=== PATIENT | male | born 1955 | race Caucasian/White ===

== ENCOUNTER 2017-05-16 03:50 | Emergency (ER) | payer OTHER ==
[~2017-05-16] VITALS: Ht 182.9 cm; Wt 71.4 kg
[~2017-05-16 03:50] MED LIST: METO25TA35 PO; OMEP40CA6 PO; PRED20TA PO; TEMA15CA PO
[2017-05-16] MEDS ORDERED: SODIUM CHLORIDE 0.9% 1,000 ML IV ONE (04:53)
[2017-05-16] MEDS ORDERED: HYDROmorphone 1 MG/ML, 1ML ONE (04:58)
[2017-05-16] MEDS ORDERED: HYDROmorphone 1 MG/ML, 1ML IVPush PRN (05:00)
[2017-05-16] MEDS ORDERED: SODIUM CHLORIDE 0.9% 1,000ML IV ONE (05:00)
[2017-05-16] MEDS ORDERED: DIAZEPAM 5 MG/ML, 2ML IVPush ONE (05:00)
[2017-05-16 05:41] LABS: BLOOD UREA NITROGEN 16 mg/dL (7-18)
[2017-05-16 07:01] VITALS: BP 114/73
== END 2017-05-16 07:22 | disposition home or self-care (01) ==
LOC: ED 07:00
DX: M54.12 Radiculopathy, cervical region (principal); M25.511 Pain in right shoulder; M25.512 Pain in left shoulder; K21.9 Gastro-esophageal reflux disease without esophagitis; I10 Essential (primary) hypertension
CPT/HCPCS: 36415; 71010; 80048; 82040; 85025; 93005; 96361; 96374; 96375; 99285; J1170; J3360; J7030

== ENCOUNTER 2017-10-16 20:09 | Emergency (ER) | payer OTHER ==
[~2017-10-16] VITALS: Ht 182.9 cm; Wt 72.0 kg
[2017-10-16 20:44] LABS: HEMATOCRIT 48.9 % (39.2-51.8); HEMOGLOBIN 16.8 g/dL (13.7-18.0); WHITE BLOOD COUNT 6.9 x10^3/uL (3.4-10)
[2017-10-16 20:51] LABS: BLOOD UREA NITROGEN 16 mg/dL (7-18)
[2017-10-16] MEDS ORDERED: KETOROLAC 60 MG/2 ML IVPush ONE (22:30)
[2017-10-16] MEDS ORDERED: OXYcodone/APAP 10/325MG TABLET PO ONE (22:30)
[2017-10-16] MEDS ORDERED: OXYcodone/APAP 10/325MG TABLET ONE (22:30)
[2017-10-16] MEDS ORDERED: ONDANSETRON 2MG/ML, 2ML IVPush ONE (22:30)
[2017-10-16] MEDS ORDERED: morphine SULFATE 10 MG/ML, 1ML IVPush ONE (22:30)
[2017-10-16 22:50] VITALS: BP 110/76
== END 2017-10-16 22:53 | disposition home or self-care (01) ==
LOC: ED 22:45
DX: M79.605 Pain in left leg (principal); M79.604 Pain in right leg; M79.651 Pain in right thigh; M79.652 Pain in left thigh; R10.84 Generalized abdominal pain; K21.9 Gastro-esophageal reflux disease without esophagitis; I10 Essential (primary) hypertension; M54.12 Radiculopathy, cervical region; Z98.890 Other specified postprocedural states
CPT/HCPCS: 36415; 80048; 81003; 82040; 82550; 85025; 93970; 99285

== ENCOUNTER 2017-12-14 22:39 | Emergency (ER) | payer OTHER ==
[~2017-12-14] VITALS: Ht 167.6 cm; Wt 75.0 kg
[2017-12-14 23:27] LABS: BASOPHILS # (AUTO) 0.05 x10^3/uL (0-0.1); BASOPHILS % (AUTO) 1 % (0-1); EOSINOPHILS # (AUTO) 0.26 x10^3/uL (0-0.4); EOSINOPHILS % (AUTO) 4 % (1-7); LYMPHOCYTES # (AUTO) 1.37 x10^3/uL (1-3.4); LYMPHOCYTES % (AUTO) 20 % (22-44); MD NO; MEAN CORPUSCULAR HEMOGLOBIN 31.5 pg (27.5-34.5); MEAN CORPUSCULAR HGB CONC 34.3 g/dL (33.2-36.2); MEAN CORPUSCULAR VOLUME 91.9 fL (81-97); MEAN PLATELET VOLUME 8.1 fL (7.4-10.4); MONOCYTES # (AUTO) 0.77 x10^3/uL (0.2-0.8); MONOCYTES % (AUTO) 11 % (2-9); NEUTROPHILS # (AUTO) 4.43 x10^3/uL (1.8-6.8); NEUTROPHILS % (AUTO) 64 % (42-75); PLATELET COUNT 233 x10^3/uL (130-400); RED BLOOD COUNT 4.14 x10^6/uL (4.38-5.82); RED CELL DISTRIBUTION WIDTH 13.5 % (9.4-14.8)
[2017-12-14 23:39] LABS: ALBUMIN 2.8 g/dL (3.4-5.0); ANION GAP 6 mmol/L (5-15); CHLORIDE 104 mmol/L (98-107); CREATININE 0.82 mg/dL (0.7-1.3)
[2017-12-14 23:44] LABS: TROPONIN I < 0.015 ng/mL (0.000-0.045)
[2017-12-15] MEDS ORDERED: OMNIPAQUE 350 MG/ML, 100ML BOTTLE ONE (00:15)
[2017-12-15 00:20] VITALS: BP 123/63
[2017-12-15] MEDS ORDERED: ONDANSETRON 2MG/ML, 2ML IVPush ONE (00:30)
[2017-12-15] MEDS ORDERED: HYDROmorphone 1 MG/ML, 1ML IV ONE (00:30)
[2017-12-15] MEDS ORDERED: HYDROmorphone 2 MG/ML, 1ML ONE (00:40)
[2017-12-15] MEDS ORDERED: ONDANSETRON 2MG/ML, 2ML ONE (00:40)
== END 2017-12-15 01:43 | disposition home or self-care (01) ==
LOC: ED 23:25
DX: J18.9 Pneumonia, unspecified organism (principal); R05 Cough; K21.9 Gastro-esophageal reflux disease without esophagitis; I10 Essential (primary) hypertension
CPT/HCPCS: 36415; 71275; 80048; 82040; 84484; 85025; 93005; 96374; 96375; 99285; J1170; J2405; Q9967

== ENCOUNTER 2018-08-14 09:17 | Emergency (ER) | payer OTHER ==
[~2018-08-14] VITALS: Ht 182.9 cm; Wt 73.7 kg
[2018-08-14 09:44] VITALS: BP 121/69
== END 2018-08-14 12:39 | disposition home or self-care (01) ==
LOC: ED 11:12 → UNDOADMIN 11:13 → EDIP 11:13 → ED 11:21
DX: S92.355A Nondisplaced fracture of fifth metatarsal bone, left foot, initial encounter for closed fracture (principal); S49.92XA Unspecified injury of left shoulder and upper arm, initial encounter; K21.9 Gastro-esophageal reflux disease without esophagitis; I10 Essential (primary) hypertension; Z96.659 Presence of unspecified artificial knee joint; W01.0XXA Fall on same level from slipping, tripping and stumbling without subsequent striking against object, initial encounter; Y93.89 Activity, other specified; Y99.8 Other external cause status; Y92.009 Unspecified place in unspecified non-institutional (private) residence as the place of occurrence of the external cause
CPT/HCPCS: 29515; 99284

== ENCOUNTER 2018-11-01 00:05 | Emergency (ER) | payer OTHER ==
[~2018-11-01] VITALS: Ht 182.9 cm; Wt 75.4 kg
[2018-11-01] MEDS ORDERED: POTA5TAB2 PO (00:52)
[2018-11-01] MEDS ORDERED: vitamin b-12 INJ (00:52)
[2018-11-01] MEDS ORDERED: CELE200C PO (00:52)
[2018-11-01] MEDS ORDERED: hectorol PO (00:52)
[2018-11-01] MEDS ORDERED: CYCL-259 PO (00:52)
[2018-11-01 01:01] LABS: BASOPHILS # (AUTO) 0.03 x10^3/uL (0-0.1); BASOPHILS % (AUTO) 0 % (0-1); EOSINOPHILS # (AUTO) 0.28 x10^3/uL (0-0.4); EOSINOPHILS % (AUTO) 4 % (1-7); LYMPHOCYTES # (AUTO) 1.92 x10^3/uL (1-3.4); LYMPHOCYTES % (AUTO) 24 % (22-44); MD NO; MEAN CORPUSCULAR HEMOGLOBIN 31.3 pg (27.5-34.5); MEAN CORPUSCULAR HGB CONC 34.5 g/dL (33.2-36.2); MEAN CORPUSCULAR VOLUME 90.7 fL (81-97); MONOCYTES # (AUTO) 0.92 x10^3/uL (0.2-0.8); MONOCYTES % (AUTO) 12 % (2-9); NEUTROPHILS # (AUTO) 4.86 x10^3/uL (1.8-6.8); NEUTROPHILS % (AUTO) 61 % (42-75); PLATELET COUNT 277 x10^3/uL (130-400); RED BLOOD COUNT 4.67 x10^6/uL (4.38-5.82); RED CELL DISTRIBUTION WIDTH 14.3 % (9.4-14.8)
[2018-11-01 01:11] LABS: ALANINE AMINOTRANSFERASE 23 U/L (12-78); ALBUMIN 3.5 g/dL (3.4-5.0); ANION GAP 9 mmol/L (5-15); CALCIUM 8.7 mg/dL (8.5-10.1); CHLORIDE 108 mmol/L (98-107)
[2018-11-01 01:16] LABS: ALKALINE PHOSPHATASE 81 U/L (45-117); BILIRUBIN,TOTAL 0.4 mg/dL (0.2-1.0); CREATININE 0.85 mg/dL (0.7-1.3); TROPONIN I < 0.015 ng/mL (0.000-0.045)
[2018-11-01 02:23] VITALS: BP 123/83
== END 2018-11-01 02:24 | disposition home or self-care (01) ==
LOC: ED 00:36
DX: R06.00 Dyspnea, unspecified (principal); K21.9 Gastro-esophageal reflux disease without esophagitis; I10 Essential (primary) hypertension
CPT/HCPCS: 36415; 71046; 80053; 83690; 84484; 85025; 93005; 99284

== ENCOUNTER 2019-10-11 17:37 | Emergency (ER) | payer OTHER ==
[~2019-10-11] VITALS: Ht 182.9 cm; Wt 74.0 kg
[~2019-10-11 17:37] MED LIST changes: +CELE200C PO; +CYCL-259 PO; +OMEP40CA42 PO; -OMEP40CA6 PO; +POTA5TAB2 PO; +hectorol PO; +vitamin b-12 INJ
--- NOTE | 2019-10-11 18:27 | NUR ---
TASK RN, FIRST CONTACT WITH PT. Pt resting on gurney connected to NIBP cuff and continous pulse ox monitor. Call light within reach. Pt presents to ED with c/o RLE pain and numbness s/p spinal epidural for pain management 48 hours ago. Pt states increase in pain after epidural. Pt states, "When they did the right side I had excrutiating pain and I moved. The doctor thought it was just the steroid putting pressure on the nerve and that when the medicine dispersed it would be better. She said to come here if it didn't get better." Pt denies loss of bowel or bladder control. Pt states epidural was to help with pain managment of "tight and cramping calf pain". NADN. No other needs expressed at this time.
--- NOTE | 2019-10-11 19:12 | NUR ---
ERP WAS IN TO SEE PT.
[2019-10-11 19:13] VITALS: BP 126/84
[2019-10-11] MEDS ORDERED: HYDROcodone/APAP 5/325 TABLET ONE (19:42)
[2019-10-11] MEDS ORDERED: METHOCARBAMOL 500 MG TABLET ONE (19:42)
[2019-10-11] MEDS ORDERED: METHOCARBAMOL 750 MG TABLET ONE ×2 (19:42→19:47)
--- NOTE | 2019-10-11 19:55 | NUR ---
PT REQUESTED PAIN MEDICATION PRIOR TO DISCHARGE. ERP NOTIFIED, NEW ORDERS RC'VD. PT DECLINED NORCO. MEDICATED WITH ROBAXIN. D/C INSTRUCTIONS, MEDS & F/U APPT RV'WD WITH PT, HE VERBALIZES UNDERSTNANDING. RX GIVEN X2. PT AMBULATED OUT OF ED WITHOUT DIFFICULTY, STATES HIS IS PICKING HIM UP.
[2019-10-11] MEDS ORDERED: HYDROcodone/APAP 5/325 TABLET PO ONE (20:00)
[2019-10-11] MEDS ORDERED: METHOCARBAMOL 750 MG TABLET PO ONE (20:00)
== END 2019-10-11 19:58 | disposition home or self-care (01) ==
LOC: ED 19:17
DX: M54.16 Radiculopathy, lumbar region (principal); K21.9 Gastro-esophageal reflux disease without esophagitis; F17.200 Nicotine dependence, unspecified, uncomplicated; Z98.890 Other specified postprocedural states
CPT/HCPCS: 99283

== ENCOUNTER 2019-11-11 16:57 | Emergency (ER) | payer OTHER ==
[~2019-11-11] VITALS: Ht 182.9 cm; Wt 75.7 kg
[2019-11-11] MEDS ORDERED: Potassium Citrate PO (17:31)
--- NOTE | 2019-11-11 17:32 | NUR ---
Pt c/o bloating and constipation with bowel movement today. Pt c/o sob, "itchy" throat, and unproductive weak cough since "last night". Pt states intermittent left and right chest pain descirbed as dull for one week. NADN. Pt resting on gurney connected to NIBP cuff, continous pulse ox monitor, and ekg monitor tech. Bedrail up x 1. Call light within reach. No needs expressed.
[2019-11-11 18:24] LABS: BASOPHILS # (AUTO) 0.04 x10^3/uL (0-0.1); BASOPHILS % (AUTO) 1 % (0-1); EOSINOPHILS # (AUTO) 0.34 x10^3/uL (0-0.4); EOSINOPHILS % (AUTO) 5 % (1-7); LYMPHOCYTES # (AUTO) 1.77 x10^3/uL (1-3.4); LYMPHOCYTES % (AUTO) 25 % (22-44); MD NO; MEAN CORPUSCULAR HEMOGLOBIN 31.2 pg (27.5-34.5); MEAN CORPUSCULAR HGB CONC 33.3 g/dL (33.2-36.2); MEAN CORPUSCULAR VOLUME 93.9 fL (81-97); MEAN PLATELET VOLUME 7.7 fL (7.4-10.4); MONOCYTES # (AUTO) 0.78 x10^3/uL (0.2-0.8); MONOCYTES % (AUTO) 11 % (2-9); NEUTROPHILS # (AUTO) 4.11 x10^3/uL (1.8-6.8); NEUTROPHILS % (AUTO) 58 % (42-75); PLATELET COUNT 302 x10^3/uL (130-400); RED BLOOD COUNT 4.82 x10^6/uL (4.38-5.82); RED CELL DISTRIBUTION WIDTH 14.6 % (9.4-14.8)
[2019-11-11 18:33] LABS: ALANINE AMINOTRANSFERASE 23 U/L (12-78); ALBUMIN 3.6 g/dL (3.4-5.0); ANION GAP 6 mmol/L (5-15); CALCIUM 8.5 mg/dL (8.5-10.1); CHLORIDE 109 mmol/L (98-107); CREATININE 1.09 mg/dL (0.7-1.3)
[2019-11-11 18:38] LABS: ALKALINE PHOSPHATASE 69 U/L (45-117); BILIRUBIN,TOTAL 0.4 mg/dL (0.2-1.0); TROPONIN I < 0.015 ng/mL (0.000-0.045)
[2019-11-11] MEDS ORDERED: DEXAMETHASONE 4 MG TABLET PO ONE (19:29)
[2019-11-11] MEDS ORDERED: DEXAMETHASONE 4 MG TABLET ONE (19:35)
[2019-11-11 19:38] VITALS: BP 127/80
--- NOTE | 2019-11-11 19:39 | NUR ---
pt medicated per mar. vss. no needs expressed. call light within reach. plan to dc.
--- NOTE | 2019-11-11 19:59 | NUR ---
flomelissa rn;Patient/Caregiver given discharge instructions and they have confirmed that they understand the instructions. Patient ambulatory with steady gait.
== END 2019-11-11 20:00 | disposition home or self-care (01) ==
LOC: ED 19:02
DX: R07.89 Other chest pain (principal); J02.9 Acute pharyngitis, unspecified; R06.02 Shortness of breath; B97.89 Other viral agents as the cause of diseases classified elsewhere; I10 Essential (primary) hypertension; K21.9 Gastro-esophageal reflux disease without esophagitis
CPT/HCPCS: 36415; 71046; 80053; 83880; 84443; 84484; 85025; 93005; 99284

== ENCOUNTER → 2020-01-08 | Outpatient (CLI) | payer OTHER ==
[~2020-01-08] MED LIST changes: +OMNIPAQUE 350 MG/ML, 100ML BOTTLE ONE; +Potassium Citrate PO
== END | disposition home or self-care (01) ==
LOC: CFH 14:23
PROVIDERS: ATTEND Internal Medicine Gastroenterology
DX: R10.812 Left upper quadrant abdominal tenderness (principal); R14.0 Abdominal distension (gaseous); M51.37 Other intervertebral disc degeneration, lumbosacral region; M47.819 Spondylosis without myelopathy or radiculopathy, site unspecified
CPT/HCPCS: 74177; 82565; Q9967

== ENCOUNTER 2020-03-16 13:02 | Emergency (ER) | payer OTHER ==
[~2020-03-16] VITALS: Ht 182.9 cm; Wt 70.8 kg
[~2020-03-16 13:02] MED LIST changes: -OMNIPAQUE 350 MG/ML, 100ML BOTTLE ONE
--- NOTE | 2020-03-16 13:31 | NUR ---
Pt to room
--- NOTE | 2020-03-16 14:07 | NUR ---
PT PRESENTS TO ED WITH C/O DIFFUSE ABD PAIN RADIATING TO LEFT CHEST, BACK AND STERNUM ONSET YESTERDAY. PT STATES PAIN LEVEL HAS FLUCUATED SINCE ONSET. PT STATES PAIN IS WORSE WHEN LYING DOWN. 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 BILATERAL BLOOD PRESSURES PERFORMED, NO SIGNIFICANT DIFFERNCE BETWEEN SIDES. PT NOTES PAIN LEVEL 7/10 AT THIS TIME. PT DENIES FEVER/COUGH/NAUSEA/VOMITING/SORE THROAT. EKG TAKEN ON ARRIVAL. PT AWAITING LAB/XRAY RESULTS AND DISPO.
[2020-03-16] MEDS ORDERED: OMEP40CA42 PO (14:16)
[2020-03-16] MEDS ORDERED: DICL100T80 PO (14:16)
[2020-03-16] MEDS ORDERED: CYCL5TAB PO (14:17)
[2020-03-16 14:31] LABS: BASOPHILS # (AUTO) 0.02 x10^3/uL (0-0.1); BASOPHILS % (AUTO) 0 % (0-1); EOSINOPHILS # (AUTO) 0.09 x10^3/uL (0-0.4); EOSINOPHILS % (AUTO) 2 % (1-7); LYMPHOCYTES # (AUTO) 1.16 x10^3/uL (1-3.4); LYMPHOCYTES % (AUTO) 24 % (22-44); MD NO; MEAN CORPUSCULAR HEMOGLOBIN 31.4 pg (27.5-34.5); MEAN CORPUSCULAR HGB CONC 33.9 g/dL (33.2-36.2); MEAN CORPUSCULAR VOLUME 92.6 fL (81-97); MONOCYTES # (AUTO) 0.71 x10^3/uL (0.2-0.8); MONOCYTES % (AUTO) 15 % (2-9); NEUTROPHILS # (AUTO) 2.84 x10^3/uL (1.8-6.8); NEUTROPHILS % (AUTO) 59 % (42-75); PLATELET COUNT 273 x10^3/uL (130-400); RED BLOOD COUNT 4.54 x10^6/uL (4.38-5.82); RED CELL DISTRIBUTION WIDTH 13.9 % (9.4-14.8)
[2020-03-16 14:36] LABS: ALANINE AMINOTRANSFERASE 24 U/L (12-78); ALBUMIN 3.5 g/dL (3.4-5.0); ANION GAP 8 mmol/L (5-15); CALCIUM 8.7 mg/dL (8.5-10.1); CHLORIDE 105 mmol/L (98-107)
[2020-03-16 14:41] LABS: ALKALINE PHOSPHATASE 67 U/L (45-117); BILIRUBIN,TOTAL 0.6 mg/dL (0.2-1.0); TOTAL PROTEIN 6.7 g/dL (6.4-8.2); TROPONIN I < 0.015 ng/mL (0.000-0.045)
--- NOTE | 2020-03-16 14:42 | NUR ---
PT BACK FROM XRAY, REPORTS CHEST PAIN LEVEL 7/10 AT THIS TIME.
--- NOTE | 2020-03-16 14:56 | NUR ---
MD MCLAUGHLIN NOTIFIED PT IS STILL COMPLAINING OF ABD PAIN RADIATING TO STERNUM, LEFT CHEST, AND NECK. PT IS A&O, RESPS EVEN AND UNLABORED, NSR ON HOISTER, NO ECTOPY. PT SPEAKING IN FULL SENTENCES WITHOUT DIFFICULTY. NO FURTHER ORDERS RECEIVED. REPORT GIVEN TO JAMES LANIER.
--- NOTE | 2020-03-16 15:08 | NUR ---
REPORT RECEIVED FROM DONTE RN. PT PROVIDED URINAL. RESP EVEN AND UNLABORED.
[2020-03-16 15:50] VITALS: BP 115/73
--- NOTE | 2020-03-16 16:14 | NUR ---
IN ROOM FOR RECHECK.
[2020-03-16] MEDS ORDERED: MAGNESIUM CITRATE 300ML ORAL SOL PO ONE (16:30)
[2020-03-16] MEDS ORDERED: MAGNESIUM CITRATE 300ML ORAL SOL ONE (16:42)
--- NOTE | 2020-03-16 17:00 | NUR ---
Patient given discharge instructions and they have confirmed that they understand the instructions. Patient ambulatory with steady gait.
== END 2020-03-16 17:07 | disposition home or self-care (01) ==
LOC: ED 14:27
DX: K59.00 Constipation, unspecified (principal); R07.9 Chest pain, unspecified; R10.9 Unspecified abdominal pain; I10 Essential (primary) hypertension
CPT/HCPCS: 36415; 74022; 80053; 83690; 84484; 85025; 93005; 99285

== ENCOUNTER 2021-07-19 19:45 | Emergency (ER) | payer OTHER ==
[~2021-07-19] VITALS: Ht 185.4 cm; Wt 76.8 kg
[~2021-07-19 19:45] MED LIST changes: -CYCL-259 PO; +CYCL10TA2 PO; +CYCL5TAB PO; +DICL100T80 PO; -OMEP40CA42 PO; +OMEP40CA8 PO
[2021-07-19 19:50] VITALS: BP 117/80
--- NOTE | 2021-07-19 19:53 | NUR ---
EKG DONE IN TRIAGE.
[2021-07-19] MEDS ORDERED: ASPIRIN 81 MG TABLET CHEW PO ONE (20:00)
[2021-07-19 20:22] LABS: BASOPHILS % (AUTO) 1 % (0-1); EOSINOPHILS % (AUTO) 4 % (1-7); LYMPHOCYTES % (AUTO) 28 % (22-44); MEAN CORPUSCULAR HEMOGLOBIN 31.9 pg (27.5-34.5); MEAN CORPUSCULAR HGB CONC 34.4 g/dL (33.2-36.2); MEAN PLATELET VOLUME 7.6 fL (7.4-10.4); MONOCYTES % (AUTO) 13 % (2-9); NEUTROPHILS % (AUTO) 55 % (42-75); PLATELET COUNT 244 x10^3/uL (130-400); RED CELL DISTRIBUTION WIDTH 13.7 % (9.4-14.8)
[2021-07-19 20:28] LABS: ALANINE AMINOTRANSFERASE 30 U/L (12-78); ALBUMIN 3.3 g/dL (3.4-5.0); ANION GAP 5 mmol/L (5-15); CALCIUM 9.1 mg/dL (8.5-10.1); CHLORIDE 105 mmol/L (98-107); CREATININE 1.04 mg/dL (0.7-1.3)
[2021-07-19 20:32] LABS: ALKALINE PHOSPHATASE 68 U/L (45-117); BILIRUBIN,TOTAL 0.3 mg/dL (0.2-1.0); TOTAL PROTEIN 7.2 g/dL (6.4-8.2); TROPONIN I < 0.015 ng/mL (0.000-0.045)
--- NOTE | 2021-07-19 22:26 | NUR ---
bid writer: patient to room from lobby.
--- NOTE | 2021-07-19 22:39 | NUR ---
PT REPORTS LEFT UPPER ABD PAIN. PLACED ON ALL MONITORS, FALL PRECAUTIONS IN PLACE, CALL LIGHT PLACED WITHIN REACH.
[2021-07-19] MEDS ORDERED: ASPIRIN 81 MG TABLET CHEW ONE (22:45)
--- NOTE | 2021-07-19 22:47 | NUR ---
MEDICATED PER MAR.
--- NOTE | 2021-07-19 23:06 | NUR ---
REPORT TO TERRI RAMIREZ.
[2021-07-19] MEDS ORDERED: MAALOX/HYOSCYAMINE/LIDOCAINE 45 ML BTL ONE (23:20)
[2021-07-19] MEDS ORDERED: MAALOX/HYOSCYAMINE/LIDOCAINE 45 ML BTL PO ONE (23:30)
== END 2021-07-20 00:04 | disposition home or self-care (01) ==
LOC: ED 23:59
DX: K29.00 Acute gastritis without bleeding (principal); R07.89 Other chest pain; K21.9 Gastro-esophageal reflux disease without esophagitis
CPT/HCPCS: 36415; 71045; 80053; 83690; 84484; 85025; 93005; 99285